=== PATIENT | male | born 1970 | race Two or more races ===

== ENCOUNTER 2016-04-29 07:25 | Emergency (ER) | payer MEDICAID, OTHER ==
[2016-04-29 08:08] LABS: ABSOLUTE NEUTROPHIL COUNT 7.2 K/mm3 (1.8-7.7); BASO # 0.1 K/mm3 (0.0-0.2); BASO % 0.6 % (0.2-1.0); EOS # 0.2 (0.0-0.5); EOS % 1.8 % (0.9-2.9); HEMOGLOBIN 15.3 gm/l (14.0-18.0); IMM NEUT # 0.1 K/mm3 (0-0.2); IMM NEUT% 0.5 % (0-1); LYMPH # 1.5 (1.0-4.8); LYMPH % 15.8 % (15-45); MEAN CELL VOLUME 82.1 fl (80.0-94.0); MEAN CORPUSCULAR HEMOGLOBIN 29.2 pg (27.0-31.0); MEAN CORPUSCULAR HGB CONC 35.6 g/dl (33.0-37.0); MEAN PLATELET VOLUME 8.8 fl (7.4-10.4); MONO # 0.3 (0.0-0.8); MONO % 3.6 % (4-12); NEUT % 77.7 % (43-75); PLATELET COUNT 207 K/mm3 (130-400); RED CELL DISTRIBUTION WIDTH 11.9 % (11.5-14.5); SPECIFIC GRAVITY 1.025 (1.001-1.030); URINE BILIRUBIN NEGATIVE (NEGATIVE); URINE BLOOD 4+ (NEGATIVE); URINE GLUCOSE (UA) NEGATIVE (NEGATIVE); URINE LEUKOCYTE ESTERASE NEGATIVE (NEGATIVE); URINE NITRITE NEGATIVE (NEGATIVE); URINE PROTEIN TRACE (NEGATIVE); URINE UROBILINOGEN NORMAL (0-1 mg/dl)
[2016-04-29 08:09] LABS: URINE APPEARANCE CLEAR; URINE COLOR YELLOW
[2016-04-29 08:23] LABS: ALB/GLOB RATIO 1.4 (>1.0); ALBUMIN 4.1 gm/dL (3.5-5.7); CALCIUM 9.1 mg/dL (8.6-10.3)
[2016-04-29 08:26] LABS: URINE BACTERIA TRACE; URINE MUCUS 2+; URINE RBC 50-60 /hpf; URINE WBC RARE /hpf
--- NOTE | 2016-04-29 09:38 | US ---
LIMITED LEFT RENAL ULTRASOUND HISTORY: Left flank pain. Hematuria. Limited left-sided renal and bladder ultrasound. FINDINGS: Renal dimensions: 11.9 x 6.2 x 5.6 in meters. Cortical thickness: 8 mm Resistive index: 0.58, within normal limits. Collecting system: No collecting system dilatation. Focal lesion: 5 mm focus of the inferior pole. Bladder: Empty. IMPRESSION: No evidence of left upper urinary tract obstruction. Normal resistive index. Probable 5 mm nonobstructive left renal calculus. Empty bladder. Results were electronically transmitted to the electronic medical record at 04/29/2016 at 0935 hours.
== END 2016-04-29 10:11 | disposition home or self-care (01) ==
LOC: ED 07:25
DX: N20.9 Urinary calculus, unspecified (principal)